=== PATIENT | female | born 1975 | race Caucasian/White ===

== ENCOUNTER 2022-11-30 11:22 | Day surgery (SDC) | payer OTHER ==
[2022-11-30] MEDS ORDERED: LIDOCAINE HCL 1% 50 MG/5 ML VL PF IJ ONE (11:23)
[2022-11-30] MEDS ORDERED: Depo-Medrol 40 MG/ML IM ONE (11:23)
[2022-11-30] MEDS ORDERED: Sodium Chloride 0.9(Preservative Free) 10 ML IJ ONE (11:23)
[2022-11-30] MEDS ORDERED: Decadron 4 MG INJ IV ONE (11:23)
[2022-11-30] MEDS ORDERED: DIPRIVAN 200 MG/20 ML IV ONE (13:12)
--- NOTE | 2022-11-30 14:54 | XRAY ---
Indication: Lumbar ARELY. Intraoperative fluoroscopy provided for 13 seconds. 2 digital spot image submitted for interpretation demonstrates posterior needle tip projecting posterior to the lumbosacral junction interspace. Small amount of contrast injected for needle tip placement. Correlate with intraoperative findings/report.
--- NOTE | 2022-11-30 14:55 | XRAY ---
Indication: Bilateral piriformis injection. Intraoperative fluoroscopy provided for 15 seconds. 4 digital spot image submitted for interpretation demonstrates posterior needle tip projecting over the expected left and right piriformis muscles. Small amount of contrast injected for needle tip placement. Correlate with intraoperative findings/report.
[2022-11-30] MEDS ORDERED: Lactated Ringers 1,000 ML IV ONE (15:20)
--- NOTE | 2022-11-30 17:21 | XRAY ---
13 seconds of fluoroscopy was used in surgery for a lumbar ARELY.
--- NOTE | 2022-11-30 17:22 | XRAY ---
15 seconds of fluoroscopy was used in surgery for a bilateral piriformis injection.
== END 2022-11-30 13:45 | disposition home or self-care (01) ==
LOC: SDC-PAIN 11:22
PROVIDERS: ATTEND Psychiatry & Neurology Pain Medicine
DX: M54.16 Radiculopathy, lumbar region (principal); M79.18 Myalgia, other site; Z79.899 Other long term (current) drug therapy; E11.9 Type 2 diabetes mellitus without complications
CPT/HCPCS: 20552; 62323; 72100; 72170; 77002; 77003; 82947; J1030; J1100; J2001; J2704; Q9966